=== PATIENT | male | born 1940 | race American Indian/Alaskan Native ===

== ENCOUNTER 2017-04-27 11:20 | Day surgery (SDC) | payer MEDICARE ==
[2017-04-24 10:21] VITALS: BMI 23.0
[2017-04-27 12:05] LABS: BASO # 0.14 K/mm3 (0.0-2.0); BASO % 0.2 % (0.0-3.0); EOS # 0.1 (0.0-0.7); EOS % 0.2 % (1.5-5.0); GRAN # 1.23 (1.4-6.5); HEMATOCRIT 34.3 % (42.0-52.0); LYMPH # 60.5 (1.2-3.4); LYMPH % 94.7 % (22.0-35.0); MEAN CELL VOLUME 93.5 fl (80.0-105.0); MEAN CORPUSCULAR HEMOGLOBIN 30.2 pg (25.0-35.0); MEAN CORPUSCULAR HGB CONC 32.4 g/dl (31.0-37.0); MEAN PLATELET VOLUME 10.2 fl (7.0-11.0); MONO # 1.9 (0.1-0.6); MONO % 2.9 % (1.0-6.0); PLATELET COUNT 148 10^3/uL (120.0-450.0); RED CELL DISTRIBUTION WIDTH 13.9 % (11.5-14.5)
[2017-04-27 12:12] LABS: POTASSIUM 4.4 mmol/L (3.6-5.0)
[2017-04-27 12:16] LABS: WHITE BLOOD COUNT 63.9 10^3/ul (4.5-11.0)
[2017-04-27 12:19] LABS: INR 1.13 (0.93-1.08); PARTIAL THROMBOPLASTIN TIME 30.4 Seconds (25.1-36.5)
[2017-04-27 12:34] LABS: ANISOCYTOSIS SLIGHT; ATYPICAL LYMPHOCYTE 6 % (0.0-0.0); HYPOCHROMIA SLIGHT; NEUTROPHIL 2 % (50.0-70.0); PLATELET ESTIMATE NORMAL (NORMAL)
[2017-04-27] MEDS ORDERED: Lidocaine 2% Inj (20ml) ONE ×2 (15:13→15:15)
[2017-04-27] MEDS ORDERED: Midazolam 2 MG/2 ML VIAL ONE ×2 (15:14→15:53)
[2017-04-27] MEDS ORDERED: Oxycodone/Acetaminophen 5/325 mg Tab PO PRN (16:44)
[2017-04-27] MEDS ORDERED: Sodium Chloride 0.45% 1,000 ML IV SCH (16:45)
[2017-04-27 17:07] VITALS: O2SAT 99
[2017-04-27 17:53] VITALS: RESP 18; TEMP 97.4
--- NOTE | 2017-04-27 18:03 | VASCULAR ---
PROCEDURE: Ultrasound and fluoroscopic l right internal jugular venous access port. CLINICAL HISTORY: Chronic lymphocytic leukemia.Venous port for chemotherapy. PHYSICIAN(S): Teddy Haines M.D. TECHNIQUE: The relative risks and indications of the procedure were explained to the patient and consent obtained. The patient was placed supine on the arteriogram table and the right neck and chest prepped and draped in the usual sterile fashion. Conscious sedation monitoring was provided throughout the procedure by a nurse. Antibiotics were given prior to the procedure. Under direct ultrasound guidance, the right internal jugular vein was punctured with a micro-puncture set. A 0.035 angled Glidewire was advanced into the IVC. A 4 cm incision was made below the right clavicle and the pocket blunted dissected. A 8 Macedonian single-lumen catheter, 23 cm long, was advanced to the SVC/RA junction. The catheter was trimmed and attached to the port. The port aspirates and injects easily. The port was placed in the pocket and closed in 2 layers. The patient tolerated the procedure well. IMPRESSION: Ultrasound and fluoroscopically placed right internal jugular venous access port.
[2017-04-27 18:20] VITALS: BP 150/76; PULSE 84
== END 2017-04-27 18:15 | disposition home or self-care (01) ==
LOC: SDSVAS 11:20
PROVIDERS: ATTEND Radiology Vascular & Interventional Radiology
DX: Z45.2 Encounter for adjustment and management of vascular access device (principal); C91.10 Chronic lymphocytic leukemia of B-cell type not having achieved remission; I10 Essential (primary) hypertension; F17.200 Nicotine dependence, unspecified, uncomplicated; E11.9 Type 2 diabetes mellitus without complications
CPT/HCPCS: 36415; 36561; 76937; 77001; 80048; 85025; 85610; 85730; 99152; 99153; C1769; C1788; J0360; J0690; J2250; J2405; J3010; J7030 ×2